=== PATIENT | female | born 1995 | race Hispanic/Latino ===

== ENCOUNTER 2021-06-30 05:55 | Day surgery (SDC) | payer OTHER ==
[~2021-06-30] VITALS: Ht 162.6 cm; Wt 78.5 kg
[~2021-06-30 05:55] MED LIST: CIPRO500 MG PO
--- NOTE | 2021-06-30 09:42 | NUR ---
06/30/21 0942 Anitha Hernandez 0934- PT ARRIVES TO PACU NONAROUSABLE TO STIMULI. RESP EVEN AND UNLABORED. OXYGEN SAT HIGH 90'S TO 100% ON 6L VIA MASK. 0942- OXYGEN TITRATED OFF AND MASK REMOVED. PT OPENS HER EYES. PT UPDATED ABOUT WHERE SHE IS AND SHE CAN REST RIGHT NOW. PT CLOSES HER EYES. RESP EVEN AND UNLABORED. OXYGEN SAT HIGH 90'S TO 100% ON RA.
--- NOTE | 2021-06-30 10:00 | NUR ---
PATIENT BACK FROM PACU. PATIENT IS DROWSY BUT AROUSABLE. PATIENT DENIES ANY PAIN OR NAUSEA. BREATHING EQUAL AND UNLABORED. IVF INFUSING AND PATENT. SCD'S ON. WATER AT BESIDE. PRESENT IN ROOM. CALL LIGHT WITHIN REACH NO FUTHER NEEDS. NO QUESTIONS.
--- NOTE | 2021-06-30 10:37 | NUR ---
PATIENT WAS ABLE TO TRANSFER FROM THE BED TO THE COMMODE AND ABLE TO VOID. 400 MLS OF RED AND CLEAR URINE.
--- NOTE | 2021-06-30 11:03 | NUR ---
PATIENT ASSESSMENT COMPLETE. PATIENT IS ALERT AND ORIENTED. PATIENT BREATHING EQUAL AND UNLABORED. PATIENT IS SITTING UP IN BED. ENCOURAGED TO DRINK SOME WATER AND EAT PUDDING. CALL LIGHT WITHIN REACH NO FUTHER NEEDS. NO QUESTIONS AT THIS TIME.
--- NOTE | 2021-06-30 11:20 | NUR ---
PATIENT MET DISCHARGE CRITERIA. PATIENT WAS ABLE TO DRESS SELF AND AMBULATE. PATIENT IV WAS D/C'D WNL. PATIENT WAS WHEELED OUT TO PRIVATE AUTO WITH .
--- NOTE | 2021-07-05 17:49 | OR ---
[facility] [address] [facility] [place], [place] [address] Signed DATE OF OPERATION: 06/30/2021 SURGEON: Chris Choi MD PREOPERATIVE DIAGNOSES: 1. A 1.1 cm obstructing left ureteropelvic junction calculus. 2. Urinary tract infection. POSTOPERATIVE DIAGNOSES: 1. A 1.1 cm obstructing left ureteropelvic junction calculus. 2. Urinary tract infection. 3. Probable previously undetected left ureteropelvic junction obstruction. PROCEDURES: 1. Diagnostic cystoscopy with left retrograde pyelogram. 2. Left flexible and semi-rigid ureteroscopy with laser lithotripsy and basket extraction of stone fragments. 3. Insertion of 6 x 24 cm double-J ureteral stent into the left ureter. ANESTHESIA: General. ESTIMATED BLOOD LOSS: Minimal. COMPLICATIONS: None. SPECIMENS: Stone fragments sent to the lab for stone analysis. DRAINS: A 6 x 24 cm double-J ureteral stent inserted into the left collecting system. INDICATIONS FOR PROCEDURE: Mrs. Wright is a very pleasant 25-year-old female who presented to my clinic earlier this week after being seen in the emergency department at [facility] for severe left-sided flank pain and nausea. She had been experiencing flank pain for the past month or so. She underwent a CT scan, which revealed an actively obstructing 1.1 cm x 7 mm calculus present lodged in her left ureteropelvic junction. The CT scan revealed moderate left Electronically Signed By: CHRIS CHOI MD 07/05/21 1749 PATIENT NAME: MARKUS WRIGHT OPERATIVE REPORT DATE OF : [birth year] REPORT #: [id number] PHYSICIAN: CHRIS CHOI MD PCP: KAREN DONATO REPORT IS CONFIDENTIAL AND NOT TO BE RELEASED WITHOUT AUTHORIZATION [facility] [address] [place], [place] [address] Signed hydronephrosis associated with the obstructing calculus. No other stones were seen on the CAT scan. After discussion of the risks and benefits of the procedure, she has elected to undergo ureteroscopic extraction of her obstructing left ureteral calculus. She has been on oral Cipro for approximately one week now and she denies any new onset fevers or chills. Her urine has remained clear since her initial treatment. OPERATIVE FINDINGS: 1. On cystoscopy, there was no evidence of any suspicious masses, lesions, or stones. Bilateral ureteral orifices are in their normal anatomic location and both were effluxing clear urine. 2. Left retrograde pyelogram revealed an actively obstructing stone, i.e., filling defect in the proximal left ureter. On the initial retrograde pyelogram, I was unable to push any of the dye, passed the obstructing stone and into the left renal pelvis. 3. Repeat left retrograde pyelogram after extraction of the stone fragments revealed moderate hydronephrosis; however, there were no filling defects present consistent with any residual stone fragments. 4. Semi-rigid ureteroscopy was initially required to pass the wire alongside the obstructing stone and into the left renal pelvis. Flexible nephro-ureteroscopy was performed and was used to visualize the stone. A holmium laser was then used to fragment the stone at 18.8 settings. The stone fragmented relatively easily and approximately 90% of stone fragments were successfully extracted today. 5. At the end of the procedure, a 6 x 24 cm double-J ureteral stent was inserted into the left collecting system under direct visualization without difficulty. DESCRIPTION OF PROCEDURE: After informed consent was obtained, the patient was taken back to the operating room. She was transferred from the [facility] to the operating room table, where general anesthesia was induced. She was placed in the dorsal lithotomy position and genitalia prepped and draped in a standard sterile fashion. Using a 30-degree lens on a 22.5-Pashto introducer rigid cystoscope was inserted through the through urethra into her bladder under direct visualization. Panendoscopic views of the bladder were then obtained. Please see above findings. I then initially attempted to pass a Sensor wire through the left ureteral orifice and up into the collecting system. The Sensor wire initially would not pass the obstructing stone and go into the left renal pelvis. I ultimately was able to pass the Sensor wire with the help of a long semi-rigid ureteroscope. I passed this ureteroscope up to the level of the left ureteropelvic junction and I was then able to pass the wire alongside the obstructing stone into the left renal pelvis. The long semi-rigid ureteroscope was then removed fully intact, leaving the Sensor wire behind. Over the wire, I passed an 11/13 ureteral access sheath into the left collecting system using fluoroscopic guidance. Once the sheath was noted to be in proper position, the Sensor wire was pulled. Repeat left retrograde pyelogram was then performed. Please see above findings. At the beginning of the procedure after Electronically Signed By: CHRIS CHOI MD 07/05/21 1749 PATIENT NAME: MARKUS WRIGHT OPERATIVE REPORT DATE OF : [birth year] REPORT #: [id number] PHYSICIAN: CHRIS CHOI MD PCP: KAREN DONATO REPORT IS CONFIDENTIAL AND NOT TO BE RELEASED WITHOUT AUTHORIZATION [address] [address] Signed diagnostic cystoscopy, the patient did undergo a left retrograde pyelogram using a cone-tipped catheter. Please see above findings. With the sheath in place, I then passed a flexible ureteroscope through the sheath and into the patient's left renal pelvis. I immediately visualized the 11 mm calculus within the left renal pelvis. I pushed the stone into a calyx and then fragmented the stone using 270 micron fiber and the holmium laser at 8.8 settings. The stone fragmented relatively easy. I then extracted the stone fragments using a Zero tip basket. There was a lip of the calyx that some of the stone fragments did hide behind. I used a bulb customer service manager to attempt to wash as many of these fragments out from behind the lip of tissue in the calyx. I extracted all of the significantly sized fragments that I could. I then repeated diagnostic nephroscopy and did not appreciate any remaining significantly sized fragments. I then removed the flexible ureteroscope and passed an another Sensor wire through the sheath and into the left renal pelvis. The ureteral access sheath was then removed fully intact. Over the wire, I passed a 6 x 24 cm double-J ureteral stent into the left collecting system under direct visualization without difficulty. Once the wire was pulled, an adequate proximal coil was seen within the left renal pelvis. An adequate distal coil was noted on cystoscopy. The patient's bladder was then drained and the cystoscope was removed. The stone fragments were then collected and placed in a specimen to be to be sent to the lab for stone analysis. The procedure was then terminated. The patient tolerated the procedure well without any complication. She will now be transferred to the Postanesthesia Care Unit in stable condition. DISPOSITION: I discussed the details of today's surgery via an park interpreter with the patient's and answered all of his questions. She will be going home today with oxycodone 5 mg one tablet p.o. q.4-6 hours p.r.n. pain, dispense #25 along with a new prescription for Cipro 500 mg p.o. b.i.d. for an additional seven days. Since there was a good deal of scar like tissue at the level of the left ureteropelvic junction, I have made the decision to keep the stent in place for 2-3 weeks. She will be scheduled to return to clinic on July 20 to undergo cystoscopy with left ureteral stent extraction. At that time, we will schedule a Lasix renal scan to evaluate drainage of her left collecting system. MD CLAY Garcia/SHAHIDAL /[id number] Electronically Signed By: CHRIS CHOI MD 07/05/21 1749 PATIENT NAME: MARKUS WRIGHT OPERATIVE REPORT DATE OF : [birth year] REPORT #: [id number] PHYSICIAN: CHRIS CHOI MD PCP: KAREN DONATO REPORT IS CONFIDENTIAL AND NOT TO BE RELEASED WITHOUT AUTHORIZATION [facility] [address] [facility] [place], [place] [address] Signed Copies: ~ Electronically Signed By: CHRIS CHOI MD 07/05/21 1749 PATIENT NAME: WRIGHTMARKUS OPERATIVE REPORT DATE OF : [birth year] REPORT #: [id number] PHYSICIAN: CHRIS CHOI MD PCP: KAREN DONATO REPORT IS CONFIDENTIAL AND NOT TO BE RELEASED WITHOUT AUTHORIZATION
== END 2021-06-30 11:20 | disposition home or self-care (01) ==
LOC: DS 05:55
PROVIDERS: ATTEND Urology
PROC: 0T778DZ Dilation of Left Ureter with Intraluminal Device, Via Natural or Artificial Opening Endoscopic (ICD-10-PCS; principal; 2021-06-30 07:30)
PROC: 0TC48ZZ Extirpation of Matter from Left Kidney Pelvis, Via Natural or Artificial Opening Endoscopic (ICD-10-PCS; 2021-06-30 07:30)
DX: N13.6 Pyonephrosis (principal); K21.9 Gastro-esophageal reflux disease without esophagitis
CPT/HCPCS: 74420; 82365; C1769; C2617; J0131; J0690; J1100; J1885; J2001; J2250; J2405; J2704; J3010; J7121; Q9967